=== PATIENT | female | born 1985 | race Caucasian/White ===

== ENCOUNTER 2019-02-22 11:50 | Inpatient (IN) | payer OTHER ==
[2019-02-22 13:04] LABS: BASO % 0.4 % (0-2.0); EOS % 0.5 % (0-4.5); HEMATOCRIT 30.2 % (32.4-45.2); LYMPH % 18.2 % (8-40); MCH 30.9 pg (25.7-33.7); MCHC 33.2 g/dl (32.0-36.0); MEAN CELL VOLUME 93.1 fl (80-96); MEAN PLT VOLUME 8.3 fl (7.5-11.1); MONO % 5.7 % (3.8-10.2); NEUT % 75.2 % (42.8-82.8); PLATELET COUNT 191 K/MM3 (134-434); RBC 3.24 M/mm3 (3.60-5.2); RDW 13.1 % (11.6-15.6); WHITE BLOOD COUNT 6.5 K/mm3 (4.0-10.0)
[2019-02-22 13:13] VITALS: BMI 27.1
[2019-02-22 13:22] LABS: INR 0.98 (0.83-1.09); PROTHROMBIN TIME (PATIENT) 11.6 SEC (9.7-13.0)
[2019-02-22 13:25] LABS: ACTIVATED PTT 25.8 SECONDS (25.2-36.5)
[2019-02-22 13:30] LABS: BLOOD UREA NITROGEN 7.8 mg/dL (7-18); CALCIUM 8.1 mg/dL (8.5-10.1); CREATININE 0.4 mg/dL (0.55-1.3); POTASSIUM 4.1 mmol/L (3.5-5.1)
[2019-02-22] MEDS ORDERED: ELECTROLYTE-148 SOLN 500 ML IV ONE (14:15)
[2019-02-22] MEDS ORDERED: CITRIC ACID/SODIUM CITRATE 30 ML UNIT-DOSE CUP PO ONE (14:15)
[2019-02-22] MEDS ORDERED: morphine SULFATE/PF 0.5 MG/ML (2cc Syringe - QUVA) ONE (14:16)
[2019-02-22] MEDS ORDERED: ONDANSETRON 4 MG/2 ML VIAL IVPUSH PRN (14:21)
[2019-02-22] MEDS ORDERED: morphine SULFATE/PF 0.5 MG/ML (2cc Syringe - QUVA) EP ONE (14:21)
[2019-02-22] MEDS ORDERED: ePHEDrine SULFATE 50 MG/1 ML AMPULE ONE (14:34)
[2019-02-22] MEDS ORDERED: ELECTROLYTE-148 SOLN 500 ML IV SCH (14:45)
[2019-02-22] MEDS ORDERED: OXYTOCIN 10 UNITS/ML VIAL ONE (15:04)
[2019-02-22] MEDS ORDERED: OXYTOCIN 20 UNITS in 0.9% NS 20 UNIT/1,000 ML INFUS.BAG IV ONE (16:04)
[2019-02-22] MEDS ORDERED: METHYLERGONOVINE MALEATE 0.2 MG/1 ML AMP IM PRN (16:35)
[2019-02-22] MEDS ORDERED: ONDANSETRON 4 MG/2 ML VIAL ONE (16:43)
--- NOTE | 2019-02-22 16:46 | HP ---
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: Alzheimer's, CVA, Dementia, Migraine, Multiple Sclerosis, Peripheral Neuropathy, Parkinson's, Seizure, Syncope, TIA, Vertigo, Other Cardiovascular: No: AFIB, Aneurysm, Aortic Insufficiency, Aortic Stenosis, CAD, CHF, Deep Vein Thrombosis, HTN, Hyperlipdemia, [place], Mitral Insufficiency, Mitral Stenosis, Murmur, Pulmonary Hypertension, Other Pulmonary: No: Asthma, Bronchitis, Cancer, COPD, O2 Dependent, Pneumonia, Previously Intubated, Pulmonary Embolus, Pulmonary Fibrosis, Sleep Apnea, Other Gastrointestinal: No: Ascites, Cancer, Constipation, Crohn's Disease, Diverticulitis, Diverticulosis, Esophageal Varices, Gastritis, GERD, GI Bleed, Hemorrhoids, Hiatal Hernia, Inflamatory Bowel Disease, Irritable Bowel Disease, Pancreatitis, Peptic Ulcer Disease, Ulcerative Colitis, Other Hepatobiliary: Yes: Hepatitis B Renal/: No: Renal Failure, Renal Inusuff, BPH, Cancer, Hematuria, Hemodialysis , Neurogenic Bladder, Renal Calculi, UTI, Other Reproductive: No: Ectopic , Endometriosis, Fibroids, PID, Polycystic Ovary Syndrome, Postmenopausal, Other ...: 3 ...Para: 2 ...Term: 2 ...: 0 ...Spon : 0 ...Induced : 0 ...Multiple Gestation: 0 ... Weeks Gestation by Dates: 38.3 ...EDC by Dates: 03/05/19 Heme/Onc: No: Anemia, B12 Deficiency, Bleeding Disorder, Cancer, Current Chemotherapy, Current Radiation Therapy, Hemochromatosis, Hypercoaguable State, Myeloproliferative Synd, Sickle Cell Disease, Sickle Cell Trait, Thrombocytopenia, Other Infectious Disease: Yes: Herpes Zoster Psych: No: Addictions, Anxiety, Bipolar, Depression, Panic, Psychosis, Schizophrenia, Other Musculoskeletal: No: Bursitis, Chronic low back pain, Hemiparesis, Hemiplegia, Osteoarthritis, Paraplegia, Other Rheumatology: No: Fibromyalgia, Gout, Lupus, Rheumatoid Arthritis, Sarcoidosis, Vasculitis, Other ENT: No: Allergic Rhinitis, Sinusitis, Other Endocrine: No: Montgomery's Disease, Nydia's Disease, Diabetes Insipidus, Diabetes Mellitus, Hyperparathyroidism, Hyperthyroidism, Hypothyroidism, Osteopenia, SIADH, Other Dermatology: No: Basal Cell, Cellulitis, Eczema, Melanoma, Psoriasis, Squamous Cell, Other Additional Medical History: chronic hepatitis carrier - Past Surgical History Past Surgical History: No: None, AAA Repair, AICD, Amputation, Appendectomy, Arthrosocopy, AV Fistula/Graft, Bariatric Surgery, Breast Biopsy, Bypass, CABG, Carotid Endarterectomy, Cataract Removal, Cholecystectomy, Colectomy, Colonoscopy, Colostomy, Craniotomy, , Cystectomy, Hernia Repair, Hysterectomy, Ileal Conduit, Ileosotomy, Joint Replacement, Kidney Transplant, Laminectomy, Liver Transplant, Mastectomy, Nephrectomy, Oopherectomy, Orchiectomy, Permanent Pacemaker, Prostatectomy, Splenectomy, Stent, Thoracotomy , TURP, Tonsillectomy, Tubal Ligation, Upper Endoscopy, Valve Replacement, Vasectomy, Vein Stripping/Ligation Hx Myomectomy: No Hx Transabdominal Cerclage: No - Advance Directives Advance Directives: Yes: Living Will - Smoking History Smoking history: Never smoked Have you smoked in the past 12 months: No - Alcohol/Substance Use Hx Alcohol Use: No History of Substance Use: reports: None - Social History Usual Living Arrangement: Yes: With Spouse Do you think of yourself as: Straight/Heterosexual ADL: Independent History of Recent Travel: No Home Medications - Allergies Allergies/Adverse Reactions: Allergies Allergy/AdvReac Type Severity Reaction Status Date / Time No Known Allergies Allergy Verified 02/22/19 12:47 - Home Medications Home Medications: Ambulatory Orders Mv-Mn/Iron/FA/Herbal/Digestive [ One Tablet] 1 tab PO DAILY 02/22/19 Valacyclovir HCl [Valtrex] 1 tab PO DAILY 02/22/19 Family Medical History Family History: Denies Review of Systems - Review of Systems Constitutional: reports: No Symptoms Eyes: reports: No Symptoms HENT: reports: No Symptoms Neck: reports: No Symptoms Cardiovascular: reports: No Symptoms Respiratory: reports: No Symptoms Gastrointestinal: reports: No Symptoms Genitourinary: reports: No Symptoms Breasts: reports: No Symptoms Reported Musculoskeletal: reports: No Symptoms Integumentary: reports: No Symptoms Neurological: reports: No Symptoms Endocrine: reports: No Symptoms Hematology/Lymphatic: reports: No Symptoms Psychiatric: reports: No Symptoms Physical Exam - Maternity Vital Signs: Vital Signs Temperature 97.2 F L 02/22/19 16:00 Pulse Rate 82 02/22/19 16:00 Respiratory Rate 17 02/22/19 16:00 Blood Pressure 98/63 02/22/19 16:00 O2 Sat by Pulse Oximetry (%) 100 02/22/19 16:00 Constitutional: Yes: Well Nourished, No Distress, Calm Eyes: Yes: WNL, Conjunctiva Clear, EOM Intact HENT: Yes: WNL, Atraumatic, Normocephalic Neck: Yes: WNL, Supple, Trachea Midline Cardiovascular: Yes: WNL, Regular Rate and Rhythm Lungs: Clear to auscultation Breast(s): Yes: WNL - Abdominal Exam/OB Fundal Height: 38 Number of Fetuses: Single Presentation: Vertex Contractions: Yes Regularity: Irregular Intensity: Mild/Mod Monitor Mode: External Heart Rate Location: [facility] Category: I Accelerations: Uniform Decelerations: None - Vaginal Exam/OB Vaginal Bleediing: No Speculum Exam: No Dilatation (cm): 1 Effacement (%): 60 Amniotic Membrane Status: Leaking Presentation: Vertex/Position Station: -2 - Physical Exam Musculoskeletal: Yes: WNL Extremities: Yes: WNL Edema: Yes Edema: LUE: 1+, RUE: 1+, LLE: 1+ Integumentary: Yes: WNL Deep Tendon Reflex Grade: Normal +2 ...Motor Strength: WNL Psychiatric: Yes: WNL, Alert, Oriented - Labs Lab Results: CBC, BMP 02/22/19 12:40 02/22/19 12:12 Hemorrhage Risk Assessment - Risk Factors Medium Risk Factors: Yes: None Risk Score: 1 Risk Level: Medium Risk Assessment/Plan active herpe, oligo, but pt c/o leaking, not confirmed, chronic hepatitis b carrier, request btl , for c s
--- NOTE | 2019-02-22 16:54 | OP ---
Operative Note - Note: Operative Date: 02/22/19 Pre-Operative Diagnosis: active herpes, oligo, leaking, btl, chronic hepatitis b carrier Operation: btl, primary lt c s , Findings: active herpe Post-Operative Diagnosis: Same as Pre-op Surgeon: Rivera White Business Analytics Manager: Guillermo Abbasi Anesthesiologist/ELECTRICAL TRYOUT PERSON: Sharon Roper MD Anesthesia: Spinal Estimated Blood Loss (mls): 700 (no complications ) Operative Report Dictated: Yes
[2019-02-22] MEDS: OXYTOCIN 20 UNITS in 0.9% NS 20 UNIT/1,000 ML INFUS.BAG IV SCH (17:13)
[2019-02-22] MEDS: IBUPROFEN 800 MG/8 ML IJ IVPB PRN (18:33)
[2019-02-23] MEDS: ACETAMINOPHEN 325 MG TABLET (FP) PO PRN ×3 (00:07→21:55)
[2019-02-23] MEDS: IBUPROFEN 800 MG/8 ML IJ IVPB PRN ×2 (02:01→09:58)
[2019-02-23] MEDS: OXYTOCIN 20 UNITS in 0.9% NS 20 UNIT/1,000 ML INFUS.BAG IV SCH (02:03)
[2019-02-23 08:08] LABS: BASO % 0.2 % (0-2.0); EOS % 0.6 % (0-4.5); HEMATOCRIT 23.4 % (32.4-45.2); HEMOGLOBIN 8.1 GM/dL (10.7-15.3); LYMPH % 7.6 % (8-40); MCH 31.6 pg (25.7-33.7); MCHC 34.5 g/dl (32.0-36.0); MEAN CELL VOLUME 91.6 fl (80-96); MEAN PLT VOLUME 8.1 fl (7.5-11.1); MONO % 5.6 % (3.8-10.2); PLATELET COUNT 149 K/MM3 (134-434); RBC 2.55 M/mm3 (3.60-5.2); RDW 12.8 % (11.6-15.6); WHITE BLOOD COUNT 8.6 K/mm3 (4.0-10.0)
[2019-02-23] MEDS: SIMETHICONE 80 MG TAB.CHEW (FP) PO PRN ×3 (10:01→21:55)
[2019-02-23] MEDS: ENOXAPARIN NA (PORCINE) 40 MG/0.4 ML DISP.SYRIN SQ SCH (10:01)
--- NOTE | 2019-02-23 10:02 | PN ---
Progress Note (short form) - Note Progress Note: 34 F s/p C/S under spinal + duramorph. pt comfortable received routine pain meds. no comps. good result anesthetic care
--- NOTE | 2019-02-23 13:43 | PN ---
Post Progress Note Post Day: 1 Type of Delivery: Primary C/S Vital Signs: Vital Signs Temperature 97.9 F 02/23/19 09:00 Pulse Rate 73 02/23/19 09:00 Respiratory Rate 16 02/23/19 10:00 Blood Pressure 96/54 L 02/23/19 09:00 O2 Sat by Pulse Oximetry (%) 100 02/22/19 16:45 Breast Exam: Yes: Soft Uterus: Yes: Fundus Firm Incision: Yes: Dressing dry and intact Abdomen/GI: Yes: Abdomen soft, Passing flatus, Tolerating PO Lochia: Yes: Serosa Lochia, amount: Small Extremities: Yes: Calves non-tender Perineum: Yes: Intact Activity: Ambulating (anemia, asymptomatic , iron pills ) - Labs Labs: CBC WBC 8.6 K/mm3 (4.0-10.0) 02/23/19 07:40 RBC 2.55 M/mm3 (3.60-5.2) L 02/23/19 07:40 Hgb 8.1 GM/dL (10.7-15.3) L 02/23/19 07:40 Hct 23.4 % (32.4-45.2) L D 02/23/19 07:40 MCV 91.6 fl (80-96) 02/23/19 07:40 MCH 31.6 pg (25.7-33.7) 02/23/19 07:40 MCHC 34.5 g/dl (32.0-36.0) 02/23/19 07:40 RDW 12.8 % (11.6-15.6) 02/23/19 07:40 Plt Count 149 K/MM3 (134-434) D 02/23/19 07:40 MPV 8.1 fl (7.5-11.1) 02/23/19 07:40 Absolute Neuts (auto) 7.4 K/mm3 (1.5-8.0) 02/23/19 07:40 Neutrophils % 86.0 % (42.8-82.8) H 02/23/19 07:40 Lymphocytes % 7.6 % (8-40) L D 02/23/19 07:40 Monocytes % 5.6 % (3.8-10.2) 02/23/19 07:40 Eosinophils % 0.6 % (0-4.5) 02/23/19 07:40 Basophils % 0.2 % (0-2.0) 02/23/19 07:40 Nucleated RBC % 0 % (0-0) 02/23/19 07:40
[2019-02-23] MEDS ORDERED: BISACODYL 10 MG SUPP.RECT RC PRN (16:35)
[2019-02-23] MEDS: oxyCODONE HCL 5 MG TABLET PO PRN ×2 (16:44→21:56)
[2019-02-23] MEDS: FERROUS SO4 325 MG TABLET (FP) PO SCH (19:11)
[2019-02-23] MEDS: SENNOSIDES/DOCUSATE COMBO (SENNA PLUS) TABLET (UD) PO PRN (21:55)
[2019-02-24] MEDS: ACETAMINOPHEN 325 MG TABLET (FP) PO PRN ×2 (06:17→10:45)
[2019-02-24] MEDS: oxyCODONE HCL 5 MG TABLET PO PRN ×4 (06:17→21:23)
[2019-02-24] MEDS: SIMETHICONE 80 MG TAB.CHEW (FP) PO PRN ×3 (06:17→16:15)
[2019-02-24] MEDS: IBUPROFEN 600 MG TABLET (FP) PO PRN ×3 (08:13→21:23)
[2019-02-24] MEDS: FERROUS SO4 325 MG TABLET (FP) PO SCH ×2 (08:14→18:08)
[2019-02-24] MEDS: ENOXAPARIN NA (PORCINE) 40 MG/0.4 ML DISP.SYRIN SQ SCH (10:44)
--- NOTE | 2019-02-24 10:46 | PN ---
Post Progress Note - Subjective Subjective: POD # 2. VSS. Feels well. Pain under good control. Showered, clot came out. Reassured. Flatus yes. Type of Delivery: Primary C/S Vital Signs: Vital Signs Temperature 98.2 F 02/24/19 09:00 Pulse Rate 68 02/24/19 09:00 Respiratory Rate 20 02/24/19 09:00 Blood Pressure 92/54 L 02/24/19 09:00 O2 Sat by Pulse Oximetry (%) 100 02/22/19 16:45 Breast Exam: Yes: Soft Uterus: Yes: Fundus Firm Incision: Yes: Dressing dry and intact Abdomen/GI: Yes: Abdomen soft, Passing flatus, Tolerating PO Lochia: Yes: Serosa Lochia, amount: Moderate Extremities: Yes: Calves non-tender Activity: Ambulating - Labs Labs: CBC WBC 8.6 K/mm3 (4.0-10.0) 02/23/19 07:40 RBC 2.55 M/mm3 (3.60-5.2) L 02/23/19 07:40 Hgb 8.1 GM/dL (10.7-15.3) L 02/23/19 07:40 Hct 23.4 % (32.4-45.2) L D 02/23/19 07:40 MCV 91.6 fl (80-96) 02/23/19 07:40 MCH 31.6 pg (25.7-33.7) 02/23/19 07:40 MCHC 34.5 g/dl (32.0-36.0) 02/23/19 07:40 RDW 12.8 % (11.6-15.6) 02/23/19 07:40 Plt Count 149 K/MM3 (134-434) D 02/23/19 07:40 MPV 8.1 fl (7.5-11.1) 02/23/19 07:40 Absolute Neuts (auto) 7.4 K/mm3 (1.5-8.0) 02/23/19 07:40 Neutrophils % 86.0 % (42.8-82.8) H 02/23/19 07:40 Lymphocytes % 7.6 % (8-40) L D 02/23/19 07:40 Monocytes % 5.6 % (3.8-10.2) 02/23/19 07:40 Eosinophils % 0.6 % (0-4.5) 02/23/19 07:40 Basophils % 0.2 % (0-2.0) 02/23/19 07:40 Nucleated RBC % 0 % (0-0) 02/23/19 07:40 Problem List - Problems (1) care following delivery Code(s): Z39.2 - ENCOUNTER FOR ROUTINE FOLLOW-UP Assessment/Plan POD # 2. Excellent recovery. Tolerating diet. Flatus pos. Wound is healing. No CVA, extrem. T. Cont. same management. All discussed, reassured.
[2019-02-24] MEDS: SENNOSIDES/DOCUSATE COMBO (SENNA PLUS) TABLET (UD) PO PRN (21:22)
[2019-02-25] MEDS: oxyCODONE HCL 5 MG TABLET PO PRN ×2 (03:22→16:10)
[2019-02-25] MEDS: SIMETHICONE 80 MG TAB.CHEW (FP) PO PRN ×3 (03:22→16:10)
[2019-02-25] MEDS: IBUPROFEN 600 MG TABLET (FP) PO PRN ×3 (03:22→16:10)
--- NOTE | 2019-02-25 07:46 | PN ---
Post Progress Note Post Day: 3 Type of Delivery: Primary C/S Vital Signs: Vital Signs Temperature 98.2 F 02/24/19 19:50 Pulse Rate 69 02/24/19 19:50 Respiratory Rate 20 02/24/19 19:50 Blood Pressure 108/61 02/24/19 19:50 O2 Sat by Pulse Oximetry (%) 100 02/22/19 16:45 Breast Exam: Yes: Soft Uterus: Yes: Fundus Firm Incision: Yes: Dressing dry and intact, Sutures intact Abdomen/GI: Yes: Abdomen soft, Tender, Passing flatus, Tolerating PO Lochia: Yes: Serosa Lochia, amount: Small Extremities: Yes: Calves non-tender Perineum: Yes: Intact Activity: Ambulating - Labs Labs: CBC WBC 8.6 K/mm3 (4.0-10.0) 02/23/19 07:40 RBC 2.55 M/mm3 (3.60-5.2) L 02/23/19 07:40 Hgb 8.1 GM/dL (10.7-15.3) L 02/23/19 07:40 Hct 23.4 % (32.4-45.2) L D 02/23/19 07:40 MCV 91.6 fl (80-96) 02/23/19 07:40 MCH 31.6 pg (25.7-33.7) 02/23/19 07:40 MCHC 34.5 g/dl (32.0-36.0) 02/23/19 07:40 RDW 12.8 % (11.6-15.6) 02/23/19 07:40 Plt Count 149 K/MM3 (134-434) D 02/23/19 07:40 MPV 8.1 fl (7.5-11.1) 02/23/19 07:40 Absolute Neuts (auto) 7.4 K/mm3 (1.5-8.0) 02/23/19 07:40 Neutrophils % 86.0 % (42.8-82.8) H 02/23/19 07:40 Lymphocytes % 7.6 % (8-40) L D 02/23/19 07:40 Monocytes % 5.6 % (3.8-10.2) 02/23/19 07:40 Eosinophils % 0.6 % (0-4.5) 02/23/19 07:40 Basophils % 0.2 % (0-2.0) 02/23/19 07:40 Nucleated RBC % 0 % (0-0) 02/23/19 07:40 Assessment/Plan dc pt home tomorrow
[2019-02-25 07:58] LABS: BASO % 0.6 % (0-2.0); EOS % 3.2 % (0-4.5); HEMATOCRIT 22.8 % (32.4-45.2); HEMOGLOBIN 7.8 GM/dL (10.7-15.3); LYMPH % 24.9 % (8-40); MCH 31.8 pg (25.7-33.7); MCHC 34.2 g/dl (32.0-36.0); MEAN CELL VOLUME 92.8 fl (80-96); MEAN PLT VOLUME 7.9 fl (7.5-11.1); MONO % 6.9 % (3.8-10.2); NEUT % 64.4 % (42.8-82.8); PLATELET COUNT 179 K/MM3 (134-434); RBC 2.45 M/mm3 (3.60-5.2); RDW 13.1 % (11.6-15.6); WHITE BLOOD COUNT 5.8 K/mm3 (4.0-10.0)
[2019-02-25] MEDS: ACETAMINOPHEN 325 MG TABLET (FP) PO PRN (08:49)
[2019-02-25] MEDS: ENOXAPARIN NA (PORCINE) 40 MG/0.4 ML DISP.SYRIN SQ SCH (10:56)
[2019-02-25] MEDS: FERROUS SO4 325 MG TABLET (FP) PO SCH ×2 (10:56→17:57)
--- NOTE | 2019-02-25 16:26 | PATH ---
Surgical Pathology Report Patient Name: SPARKLE CHRISTIAN [facility]. Rec. #: [id number] /Age/Gender: 1985 (Age: 34) / F Account: [id number] Location: [facility] OBS/DISTRIBUTION ACCOUNTING CLERK Taken: 02/22/2019 Received: 02/23/2019 Reported: 02/25/2019 Physicians: Rivera White MD Specimen(s) Received A: PLACENTA B: PORTION OF RIGHT FALLOPIAN TUBE C: PORTION OF LEFT FALLOPIAN TUBE Clinical History , 38.3 weeks, primary and BTL Final Diagnosis A. PLACENTA, SECTION: 444 G THIRD TRIMESTER PLACENTA WITH TRIVASCULAR UMBILICAL CORD AND UNREMARKABLE PLACENTAL MEMBRANES. B. PORTION OF FALLOPIAN TUBE, RIGHT, PARTIAL EXCISION: FULL LUMINAL PORTION OF UNREMARKABLE FALLOPIAN TUBE. C. PORTION OF FALLOPIAN TUBE, LEFT, PARTIAL EXCISION: FULL LUMINAL PORTION OF UNREMARKABLE FALLOPIAN TUBE. Electronically Signed Genoveva Cannon M.D. Gross Description A. The specimen is received fresh labeled placenta and is a 444 gram, 19.0 x 15.0 x 2.2 cm. placenta with attached membranes and umbilical cord. The attached membranes are geiger, translucent with focal opacities and insert marginally. The umbilical cord measures 30 cm. in length and averages 1.1 cm. in diameter. The cord inserts centrally. No true knots or strictures are identified. Cut surface of the umbilical cord reveals 3 vessels. The surface is wagner-blue with minimal fibrin deposition and appropriate caliber vessels. The maternal surface is red-brown with focal defects. Sectioning reveals red-brown, spongy parenchyma. No lesions are identified. Cap Coverer sections are submitted in three cassettes as follows: 1- membrane rolls and umbilical cord; 2-3- full thickness sections of placenta. B. Received fresh labeled "portion of right fallopian tube," is a 2.3 cm in length portion of fallopian tube. No fimbria are present. The outer surface is geiger-pink and smooth. Sectioning reveals an unremarkable lumen. Cap Coverer sections are submitted in one cassette. C. Received fresh labeled "portion of left fallopian tube," is a 1.1 cm in length portion of fallopian tube. No fimbria are present. The outer surface is geiger-pink and smooth. Sectioning reveals an unremarkable lumen. Cap Coverer sections are submitted in one cassette. 02/23/2019 saudi02/23/2019
[2019-02-25] MEDS ORDERED: oxyCODONE HCL 5 MG TABLET PO PRN ×2 (19:30)
--- NOTE | 2019-02-25 19:30 | DS ---
Physical Exam-DICTATING MACHINE TYPIST Vital Signs: Vital Signs Temperature 97.8 F 02/25/19 09:00 Pulse Rate 77 02/25/19 09:00 Respiratory Rate 20 02/25/19 09:00 Blood Pressure 98/74 02/25/19 09:00 O2 Sat by Pulse Oximetry (%) 100 02/22/19 16:45 Constitutional: Yes: Well Nourished, No Distress, Calm Eyes: Yes: WNL, Conjunctiva Clear, EOM Intact HENT: Yes: WNL, Atraumatic, Normocephalic Neck: Yes: WNL, Supple, Trachea Midline Cardiovascular: Yes: WNL, Regular Rate and Rhythm Respiratory: Yes: WNL, Regular, CTA Bilaterally Gastrointestinal: Yes: WNL, Normal Bowel Sounds, Soft ...Rectal Exam: Yes: WNL Renal/: Yes: WNL Pelvis: Yes: WNL External Genitalia: Yes: Normal Internal Exam Deferred: No Vaginal Exam: Yes: Normal Cervix: Yes: Normal Uterus: Yes: Normal Adnexa: Normal: Bilateral ....Post : Yes: Uterus firm, Uterus non-tender Breast(s): Yes: WNL Musculoskeletal: Yes: WNL Extremities: Yes: WNL Edema: Yes Integumentary: Yes: WNL Wound/Incision: Yes: Clean/Dry, Well Approximated Neurological: Yes: WNL, Alert, Oriented ...Motor Strength: WNL Psychiatric: Yes: WNL, Alert, Oriented Labs: CBC, BMP 02/25/19 07:20 02/22/19 12:12 Delivery - Delivery Type of Anesthesia: Spinal Episiotomy/Laceration: None EBL (cc): 700 Delivery, Single - Stages of Labor Date of Delivery: 02/22/19 Time of Delivery: 14:53 Time Placenta Delivered: 14:54 - Condition of Infant Plastic Worker/High School Guidance Counselor Present: Yes Name: Landen Osborn Infant Gender: Male Weight: 3.147 kg Position: Left, OA Total Hours ROM (Hrs/Mins): 0Hrs/2Mins - 1 Minute Total Score: 9 5 Minutes Total Score: 9 - [place] Feeding Plan Initial Plan: Exclusive throughout hospitalization Discharge Summary Problems reviewed: Yes Reason For Visit: Current Active Problems care following delivery (Acute) Procedures: Principal: primary lt c s Hospital Course: un eventful Health Concerns: none Plan of Treatment: oob as much as possible Goals: return to work in 8 weeks Condition: Good - Instructions Diet, Activity, Other Instructions: regular, routine post c s care Disposition: HOME - Home Medications Comprehensive Discharge Medication List: Ambulatory Orders Mv-Mn/Iron/FA/Herbal/Digestive [ One Tablet] 1 tab PO DAILY 02/22/19 Valacyclovir HCl [Valtrex] 1 tab PO DAILY 02/22/19 Prescription Drug Monitoring Program (I-STOP) results: I-STOP reviewed and no issues identified
[2019-02-26] MEDS: IBUPROFEN 600 MG TABLET (FP) PO PRN (06:40)
[2019-02-26] MEDS: ACETAMINOPHEN 325 MG TABLET (FP) PO PRN (06:40)
[2019-02-26] MEDS: SIMETHICONE 80 MG TAB.CHEW (FP) PO PRN (06:40)
[2019-02-26] MEDS: ENOXAPARIN NA (PORCINE) 40 MG/0.4 ML DISP.SYRIN SQ SCH (09:06)
[2019-02-26] MEDS: FERROUS SO4 325 MG TABLET (FP) PO SCH (09:06)
[2019-02-26 13:31] VITALS: BP 108/68; PULSE 80; TEMP 98
--- NOTE | 2019-02-26 18:58 | OP ---
DATE OF OPERATION: 02/22/2019 PREOPERATIVE DIAGNOSIS: Active herpes lesion and oligohydramnios and possible rupture of membrane with leaking, bilateral tubal ligation, and chronic hepatitis B surface antigen carrier. POSTOPERATIVE DIAGNOSIS: Active herpes lesion and oligohydramnios and possible rupture of membrane with leaking, bilateral tubal ligation, and chronic hepatitis B surface antigen carrier. PROCEDURE: Primary low transverse section and bilateral tubal ligation. SURGEON: Rivera White MD. PER DIEM CLERK: DEAN Carrera. ANESTHESIOLOGIST: Sharon Roper M.D. ANESTHESIA: Spinal. INDICATION: This is a 34-year-old female patient, 38 weeks and 4 days with a persistent pain and persistent possible leaking for about 2 days. The patient was seen in [facility] 2 days before with labor pain and possible rupture of membranes and leaking, which was ruled out and sent home, so patient was scheduled for this Friday of February 26 because of an active herpes lesion, which was seen on February 20, even though the patient was taking Valtrex medication throughout the last month. So with the above history, and the patient also is hepatitis B carrier, which has been reported to Department of Health and also reported to Pediatric Department; patient will receive immunoglobulin, and patient also requests bilateral tubal ligation, and all the risks and benefits, alternatives explained to the patient including risk of a future , ectopic, nonreversible, and a 99% effective rate. Patient understood and patient requests tubal ligation, declines all other methods of family planning. Again, patient has persistent complaint about leak for the past 2 days, and patient was seen in the office today, and February 22 was found to have oligohydramnios from amniotic fluid index by the sonogram, and patient with active herpes lesion, so therefore patient was sent in from office on February 22 for as oligohydramnios and active herpes lesion as 2 primary diagnoses. DESCRIPTION OF PROCEDURE: Patient was taken to OR and placed on operating table in supine position after spinal anesthesia was obtained. The patient's abdomen and pelvis were prepped and draped in the usual sterile manner. Pfannenstiel incision was made. Incision was made through skin and subcutaneous tissue until the fascia was nicked in the midline. The fascia was extended bilaterally. Intraperitoneal cavity was entered, bladder flap was created. Low transverse section of uterus was entered, baby delivered from LOT position. Baby was handed over to the secretary office clerk after umbilical cord was doubly clamped and cut. Cord blood gas was obtained. Placenta was removed. Uterus was closed in single layer, first layer interlocking Vicryl suture, good hemostasis draining clear urine. Blood loss about 700 mL. Both tubes were grasped with the Bellona and doubly transected and suture ligated with good hemostasis, and both ends were coagulated with the Bovie. Again, good hemostasis. Patient tolerated procedure well and draining clear urine. Bladder flap was closed. Peritoneum was closed. Fascia was closed. Skin was closed. Transferred to recovery room in stable condition. MD SHAILESH JOHNSON/[id number]
== END 2019-02-26 12:15 | disposition home or self-care (01) | DRG 784 ==
LOC: JLDR 11:50 → J3W 17:20
PROVIDERS: ADMIT Obstetrics & Gynecology; ATTEND Obstetrics & Gynecology
PROC: 10D00Z1 Extraction of Products of Conception, Low, Open Approach (ICD-10-PCS; principal; 2019-02-22)
PROC: 0UB70ZZ Excision of Bilateral Fallopian Tubes, Open Approach (ICD-10-PCS; 2019-02-22)
DX: O98.52 Other viral diseases complicating childbirth (principal); B00.89 Other herpesviral infection; O41.03X0 Oligohydramnios, third trimester, not applicable or unspecified; B19.10 Unspecified viral hepatitis B without hepatic coma; O99.013 Anemia complicating pregnancy, third trimester; O98.413 Viral hepatitis complicating pregnancy, third trimester; Z3A.38 38 weeks gestation of pregnancy; Z37.0 Single live birth; Z30.2 Encounter for sterilization
CPT/HCPCS: 36415; 80048; 85025; 85610; 85730; 86593; 86850; 86900; 86901; 87389